=== PATIENT | female | born 1945 | race Hispanic/Latino ===

== ENCOUNTER 2017-11-21 17:01 | Emergency (ER) | payer MEDICARE, OTHER ==
[2017-11-21 17:10] VITALS: BP 155/88; PULSE 73; RESP 16; TEMP 98; O2SAT 98
--- NOTE | 2017-11-21 19:58 | ED PDOC ---
HPI: Abdomen Time Seen by Provider: 11/21/17 18:40 Chief Complaint (Nursing): Abdominal Pain Chief Complaint (Provider): Diarrhea, cramping abdominal pain which resolved History Per: Patient History/Exam Limitations: no limitations Onset/Duration Of Symptoms: Hrs Outside of [place] travel?: No Current Symptoms Are (Timing): Better Additional Complaint(s): 72 yo female with history of C.Diff came in for evaluation of diarrhea. PT states shortly after lunch she had diffuse abdominal cramping and an episode of watery diarrhea. PT had C.Diff a few months after being on antibiotics 3 years ago. Pt states she was antibiotics in October for dental procedure. Pt states she is in [place] to visit help take care of her 4 year old grandson because her daughter just had a baby. PT is very concerned about C.Diff and giving infection to who has not yet come home. Past Medical History Reviewed: Historical Data, Nursing Documentation, Vital Signs Vital Signs: Last Vital Signs Temp 98.0 F 11/21/17 17:04 Pulse 73 11/21/17 17:04 Resp 16 11/21/17 17:04 BP 155/88 H 11/21/17 17:04 Pulse Ox 98 11/21/17 17:04 - Medical History PMH: Anxiety, Diabetes, HTN - Surgical History Surgical History: Tonsillectomy - Family History Family History: States: No Known Family Hx - Living Arrangements Living Arrangements: With Family - Social History Current smoker - smoking cessation education provided: No - Immunization History Hx Tetanus Toxoid Vaccination: (pt unsure of last vaccine) - Home Medications Home Medications: Ambulatory Orders Medication Instructions Recorded Acetaminophen with Codeine 1 tab PO Q6 PRN #15 tab 04/18/15 [Tylenol with Codeine No. 3 300 mg-30 mg] Clindamycin [Cleocin] 300 mg PO TID #21 cap 04/18/15 - Allergies Allergies/Adverse Reactions: Allergies Allergy/AdvReac Type Severity Reaction Status Date / Time Penicillins Allergy RASH Verified 11/21/17 17:10 Review of Systems ROS Statement: Except As Marked, All Systems Reviewed And Found Negative Constitutional: Negative for: Fever, Chills Gastrointestinal: Positive for: Abdominal Pain, Diarrhea Physical Exam - Reviewed Nursing Documentation Reviewed: Yes Vital Signs Reviewed: Yes - Physical Exam Appears: Positive for: Well, Non-toxic, No Acute Distress Head Exam: Positive for: ATRAUMATIC, NORMAL INSPECTION, NORMOCEPHALIC Skin: Positive for: Normal Color, Warm, DRY Eye Exam: Positive for: Normal appearance ENT: Positive for: Normal ENT Inspection Neck: Positive for: Normal, Painless ROM Cardiovascular/Chest: Positive for: Regular Rate, Rhythm Respiratory: Positive for: Normal Breath Sounds. Negative for: Accessory Muscle Use, Respiratory Distress Gastrointestinal/Abdominal: Positive for: Normal Exam, Soft. Negative for: Tenderness Back: Positive for: Normal Inspection Extremity: Positive for: Normal ROM Neurologic/Psych: Positive for: Alert, Oriented - ECG O2 Sat by Pulse Oximetry: 98 Medical Decision Making Medical Decision Making: Endorsed pending labs and re-evaluation. Disposition - Clinical Impression Clinical Impression: Diarrhea - Patient ED Disposition Is Patient to be Admitted: Transfer of Care - Disposition Disposition: Transfer of Care Disposition Time: 19:59 Condition: STABLE Instructions: Diarrhea in Adolescents and Adults
[2017-11-21 20:58] LABS: BASO # 0.1 K/uL (0.0-0.2); EOS # 0.1 K/uL (0.0-0.7); EOS % 1.3 % (0.0-4.0); HEMOGLOBIN 11.8 g/dL (12.0-16.0); LYMPH # 1.4 K/uL (1.0-4.3); LYMPH % 18.5 % (20.0-40.0); MEAN CORPUSCULAR HEMOGLOBIN 30.8 pg (27.0-31.0); MEAN CORPUSCULAR HGB CONC 33.5 g/dL (33.0-37.0); MEAN PLATELET VOLUME 7.5 fl (7.2-11.7); MONO # 0.6 K/uL (0.0-0.8); MONO % 7.6 % (0.0-10.0); NEUT # 5.5 K/uL (1.8-7.0); NEUT % 71.6 % (50.0-75.0); NRBC % 0.1 % (0.0-0.0); RBC 3.85 Mil/uL (3.80-5.20); RED CELL DISTRIBUTION WIDTH 13.7 % (11.5-14.5); WHITE BLOOD COUNT 7.7 K/uL (4.8-10.8)
[2017-11-21 21:09] LABS: ALB/GLOB RATIO 1.4 (1.0-2.1); ALBUMIN 3.9 g/dL (3.5-5.0); CALCIUM 9.4 mg/dL (8.4-10.2)
--- NOTE | 2017-11-21 22:53 | ED PDOC ---
- Laboratory Results Result Diagrams: 11/21/17 20:50 11/21/17 20:50 - ECG O2 Sat by Pulse Oximetry: 98 - Progress ED Course And Treament: Case endorsed to editorial writer from [facility] pending labs, re-eval Patient states she is unable to provide stool sample and would like to go home at this time and bring stool sample back when she does need to have a bowel movement. Patient denies abdominal pain at this time. Patient was educated on [employer] in order to establish follow up for stool testing Return precautions given. Disposition - Clinical Impression Clinical Impression: Diarrhea - POA Present On Arrival: None - Disposition Disposition: Routine/Home Disposition Time: 22:52 Condition: STABLE Instructions: Diarrhea in Adolescents and Adults Forms: [employer] (Yoruba)
== END 2017-11-21 22:41 | disposition home or self-care (01) ==
LOC: H.ER 17:01
DX: R19.7 Diarrhea, unspecified (principal); E11.9 Type 2 diabetes mellitus without complications; I10 Essential (primary) hypertension; Z88.0 Allergy status to penicillin